=== PATIENT | male | born 1965 | race African-American/Black ===

== ENCOUNTER 2019-02-20 13:43 | Outpatient (CLI) | payer OTHER ==
[2019-02-20 14:08] LABS: BASOPHILS % 0.6 (0.0-1.5); EOSINOPHILS % 2.8 % (0.0-6.8); MEAN CORPUSCULAR HEMOGLOBIN 27.3 pg (28.0-34.0); MONOCYTES % 5.3 % (0.0-11.0); NEUTROPHILS # 2.2 # k/uL (1.4-7.7)
[2019-02-20 14:19] LABS: eGFR (Non-African) > 60
== END 2019-02-20 13:44 ==
LOC: LAB 13:43
PROVIDERS: ATTEND General Practice
DX: R22.41 Localized swelling, mass and lump, right lower limb (principal)
CPT/HCPCS: 36415; 80053; 85025